=== PATIENT | male | born 1975 | race Two or more races ===

== ENCOUNTER 2021-04-15 13:38 | Emergency (ER) | payer BC, OTHER ==
[~2021-04-15] VITALS: Ht 175.3 cm; Wt 109.8 kg
[2021-04-15 14:07] VITALS: BP_SYST 141
[2021-04-15 15:15] LABS: BILIRUBIN,URINE NEGATIVE (NEGATIVE); CLARITY/URINE CLEAR (CLEAR); COLOR,URINE YELLOW (YELLOW); GLUCOSE,URINE NEGATIVE (NEGATIVE); KETONES,URINE TRACE (NEGATIVE); LEUKOCYTE ESTERASE ,URINE NEGATIVE (NEGATIVE); NITRITE, URINE NEGATIVE (NEGATIVE); PH,URINE 6.5 (5.0-8.0); PROTEIN URINE NEGATIVE (NEGATIVE); UROBILINOGEN,URINE 0.2 (0.2-1.0)
[2021-04-15 15:21] LABS: BLOOD, URINE TRACE (NEGATIVE)
--- NOTE | 2021-04-15 16:57 | NUR ---
Patient to ER bed H1 to gown for evaluation. Side rails up. Report given to EMIGDIO RAPHAEL.
--- NOTE | 2021-04-15 17:12 | NUR ---
PT COMES TO ER WITH C/O RLQ ABD PAIN X 4 DAYS, INTERMITTENT, RELIEVED BY SITTING DOWN, WORSE WITH STANDING. DENIES ANY N/V/D. DENIES ANY FEVERS/CHILLS. PT WITH FACIAL GRIMACING, MOANING. ER INFORMED, WAIITNG FOR ER EVAL. SL TO LT HAND-PATENT, WAITING FOR ORDERS. ABD ROUND/SOFT, SLIGHTLY TENDER TO PALPATION. DENIES DYSURIA. PT STILL HAS APPENDIX.
[2021-04-15 17:18] LABS: BACTERIA,URINE FEW /HPF (None Seen); MUCUS,URINE None Seen /LPF (None Seen)
[2021-04-15] MEDS ORDERED: NACL 0.9% 1,000 ML IV ONE (17:30)
--- NOTE | 2021-04-15 18:00 | NUR ---
Dr Matute evaluating patient at bedside
[2021-04-15 18:03] LABS: EOSINOPHILS # (AUTO) 0.1 K/uL (0.0-0.4); HEMOGLOBIN 16.2 g/dL (14.0-18.0); MEAN CORPUSCULAR VOLUME 92 fL (79.0-98.0); MONOCYTES # (AUTO) 0.8 K/uL (0.0-1.0); RED CELL DISTRIBUTION WIDTH 12.5 % (9.0-15.0)
[2021-04-15 18:13] LABS: BASOPHILS % (AUTO) 0.3 % (0.0-2.0); EOSINOPHILS % (AUTO) 1.2 % (0.0-4.0); HEMATOCRIT 46.7 % (36-54); LYMPHOCYTES # (AUTO) 1.6 K/uL (1.0-5.5); LYMPHOCYTES % (AUTO) 17.6 % (20.5-51.5); MEAN CORPUSCULAR HEMOGLOBIN 32 pg (27-31); MEAN CORPUSCULAR HGB CONC 35 % (32-36); MONOCYTES % (AUTO) 9.2 % (1.7-9.3); NEUTROPHILS # (AUTO) 6.6 K/uL (1.8-7.7); NEUTROPHILS % (AUTO) 71.7 % (40.0-70.0); PLATELET COUNT (AUTO) 195 K/uL (130-430); RED BLOOD CELL COUNT(AUTO) 5.05 MIL/uL (4.2-6.2); WHITE BLOOD COUNT (AUTO) 9.2 K/uL (4.8-10.8)
[2021-04-15 18:14] LABS: CALCIUM 9.1 mg/dL (8.4-11.0); CREATININE 1.09 mg/dL (0.55-1.30); POTASSIUM 4.5 mmol/L (3.5-5.1)
[2021-04-15 18:24] LABS: ALBUMIN 3.9 g/dL (3.4-4.8); TOTAL BILIRUBIN 1.4 mg/dL (0.0-1.0)
[2021-04-15 20:19] VITALS: BP_SYST 141
--- NOTE | 2021-04-15 20:22 | NUR ---
Patient given written and verbal discharge instructions and verbalizes understanding. ER MD discussed with patient the results and treatment provided. Patient in stable condition. ID arm band removed. No Rx given. Patient educated on pain management and to follow up with PMD. Pain Scale 1/10. Opportunity for questions provided and answered. Medication side effect fact sheet provided.
== END 2021-04-15 20:19 | disposition home or self-care (01) ==
LOC: SED 13:38
DX: N13.2 Hydronephrosis with renal and ureteral calculous obstruction (principal); F12.90 Cannabis use, unspecified, uncomplicated; F17.290 Nicotine dependence, other tobacco product, uncomplicated
CPT/HCPCS: 36415; 74176; 76376; 80053; 81000; 85025; 96360; 99284; J7030